=== PATIENT | female | born 1975 | race Caucasian/White ===

== ENCOUNTER 2017-04-15 17:26 | Emergency (ER) | payer OTHER ==
[~2017-04-15 17:26] MED LIST: ACETAMINOPHEN650 M3 PO; ADVIL200 M2 PO; AFRIN NASAL SPR15 ML; ALBUTEROL17 GM INH; ANUSOL SUPP1 SUPP PR; BACTRIM DS TABL1 TA1; BACTRIM DS TABL1 TA1 PO; BACTROBAN22 GM TOP; BACTROBAN22 GM TP; BENTYL20 MG PO; BENZONATATE PO; BENZONATATE200 M1 PO; BUPROPION XL300 M1 PO; CEFDINIR300 M2 PO; CLEOCIN PO; CLEOCIN150 M1 PO; CLOTRIMAZOLE15 GM TP; COLACE PO; DICLOFENAC SODI50 MG PO; DIFLUCAN PO; FAMOTIDINE PO; HUMIBID-LA600 MG PO; HYDROCORTISONE30 G2 EXT; IBUPROFEN600 MG; IBUPROFEN800 MG PO; LEVAQUIN PO; LORTAB 5-325 M1 EACH PO; LORTAB 7.5-5001 TAB PO; LORTAB 7.51 TAB 7.5/ PO; MEDROL4 MG/DOSE- PO; MUCINEX D ER T1 EAC1 PO; MUCINEX DM TABL1 BOX PO; NAPROSYN-EC500 M1 PO; NAPROSYN500 MG PO; NICOTINE TRANSD21 MG EXT; NO MEDICATIONS; PERCOCET5/325 PO; PHENERGAN DM1 ML PO; PHENERGAN25 M1 PO; PHENERGAN25 MG PO; POTASSIUM CHLO20 ME1 PO; PREDNISONE PO; PREDNISONE10 MG PO; PRILOSEC PO; PROAIR HFA8.5 GM INH; PROMETHAZI6.25 MG/5 PO; PROMETHEGAN12.5 MG PR; ROBAXIN PO; ROBAXIN500 MG PO; ROBITUSSIN A-C-S1 ML PO; SUDAFED30 M1 PO; SYMBICORT80 INH; TAMIFLU75 M1 PO; TESSALON200 MG PO; TRAMADOL HCL50 M1 PO; TYLENOL COLD CA1 TA1 PO; TYLENOL325 M1 PO; ULTRAM PO; VIBRAMYCIN100 M1 PO; VICODIN 5/1 TAB 5/50 PO; VISTARIL PO; VITAMIN D310000 UNI1 PO; VOLTAREN75 MG PO; VYVANSE30 MG PO; XANAX1 MG PO; ZITHROMAX PO; ZOFRAN PO; [UNRECOGNIZED DRUG - OTHER] PO
== END 2017-04-15 21:27 | disposition left against medical advice (07) ==
LOC: CED 17:26
DX: Z53.21 Procedure and treatment not carried out due to patient leaving prior to being seen by health care provider (principal)